=== PATIENT | female | born 1960 | race Caucasian/White ===

== ENCOUNTER 2016-08-19 01:14 | Emergency (ER) | payer SELFPAY ==
[~2016-08-19 01:14] MED LIST: BUPR300T PO; LEXA20TA PO; LIPI40TA PO; LOSA100T3 PO; MELO-1 PO; METO100T PO; NAPR500T PO; TEMA30CA PO
[2016-08-19 01:17] VITALS: BP 163/94; PULSE 98; RESP 16; TEMP 97.5; O2SAT 97
== END 2016-08-19 02:30 | disposition left against medical advice (07) ==
LOC: NED 01:14
DX: F32.9 Major depressive disorder, single episode, unspecified (principal); Z53.21 Procedure and treatment not carried out due to patient leaving prior to being seen by health care provider
CPT/HCPCS: 99281

== ENCOUNTER 2016-12-25 15:56 | Emergency (ER) | payer SELFPAY ==
[~2016-12-25] VITALS: Ht 170.2 cm; Wt 62.0 kg
[~2016-12-25 15:56] MED LIST changes: -MELO-1 PO; +MELO15TA20 PO; -NAPR500T PO; +NAPR500T2 PO
[2016-12-25 16:07] VITALS: BP 169/83; PULSE 91; RESP 16; TEMP 97.9; O2SAT 98
--- NOTE | 2016-12-25 17:01 | PD ---
HPI Chief Complaint: Injury Time Seen by Provider: 16:32 Travel History International Travel<30 days: No Contact w/Intl Traveler<30days: No Traveled to known affect area: No History of Present Illness HPI 56 old female with right rib and back pain after falling off work and equipment and landing onto a treadmill. She denies head injury or loss of consciousness. She denies headache, neck pain, chest pain, shortness of breath, abdominal pain or paresthesia or weakness in extremities. Symptom severity is moderate. She reports the pain is worse with movement and relieved with rest. PFSH Past Medical History Depression: Yes Cardiovascular Problems: Yes (htn on meds) Hypertension: Yes Triglycerides - High: Yes Past Surgical History Abdominal Surgery: Yes (EXPLORATORY SURGERY) Gynecologic Surgery: Yes (HYSTERECTOMY) Hysterectomy: Yes Other Surgery: Yes Social History Alcohol Use: Yes (occ) Tobacco Use: Yes (02/09 PPD) Substance Use: No Allergies-Medications (Allergen,Severity, Reaction): Coded Allergies: morphine (Unverified Allergy, Mild, headache, 12/25/16) Reported Meds & Prescriptions Reported Meds & Active Scripts Active Robaxin (Methocarbamol) 500 Mg Tab 500 Mg PO TID Reported Lipitor (Atorvastatin Calcium) 40 Mg Tab 40 Mg PO HS Naproxen 500 Mg Tab 500 Mg PO BID Metoprolol Tartrate 100 Mg Tab 100 Mg PO HS Meloxicam 15 Mg Tab 15 Mg PO DAILY Losartan-Hydrochlorothiazide 100-12.5 Mg Tab 1 Tab PO DAILY Lexapro (Escitalopram Oxalate) 20 Mg Tab 20 Mg PO DAILY Bupropion HCl ER 24 HR (Bupropion HCl) 300 Mg Tab 300 Mg PO DAILY Temazepam 30 Mg Cap 30 Mg PO HS PRN Review of Systems Except as stated in HPI: all other systems reviewed are Neg General / Constitutional: No: Fever Eyes: No: Visual changes HENT: No: Headaches Cardiovascular: No: Chest Pain or Discomfort Respiratory: No: Shortness of Breath Physical Exam Narrative GENERAL: Well-nourished, well-developed patient. SKIN: Focused skin assessment warm/dry. HEAD: Normocephalic. Atraumatic EYES: No scleral icterus. No injection or drainage. EOMs intact NECK: Supple, trachea midline. No JVD or lymphadenopathy. Cervical midline tenderness CARDIOVASCULAR: Regular rate and rhythm without murmurs, gallops, or rubs. RESPIRATORY: Breath sounds equal bilaterally. No accessory muscle use. GASTROINTESTINAL: Abdomen soft, non-tender, nondistended. MUSCULOSKELETAL: No cyanosis, or edema. Pelvis is stable. BACK: Tenderness of the thoracic and lumbar spine. Ecchymosis noted to the right posterior back at the location of rib number 12. No crepitus. Without obvious deformity. No CVA tenderness. Data Data Last Documented VS Vital Signs Date Time Temp Pulse Resp B/P (MAP) Pulse Ox O2 Delivery O2 Flow Rate FiO2 12/25/16 16:07 97.9 91 16 169/83 (111) 98 Orders Orders Spine, Thoracic-Ap/Lat/Sw(3vw) (12/25/16 ) Spine, Lumbar Comp W/Obliq (12/25/16 ) Chest, Single Ap (12/25/16 ) Ketorolac Inj (Toradol Inj) (12/25/16 18:00) Ed Discharge Order (12/25/16 17:52) MDM Medical Decision Making Medical Screen Exam Complete: Yes Emergency Medical Condition: Yes Differential Diagnosis Rib fracture, contusion, spine fracture, back strain Narrative Course 56-year-old female here for rib and back pain after falling off work and equipment last night. There was no loss of consciousness. She is a normal neurologic exam. CVA tenderness. She denies hematuria. She does have ecchymosis along the border of the right lower rib cage/lumbar region. Thoracic spine x-ray: Negative for fracture Lumbar spine x-ray: Negative for fracture Chest x-ray: Normal chest Diagnosis Primary Impression: Contusion Qualified Codes: S30.0XXA - Contusion of lower back and pelvis, initial encounter Referrals: [facility] Departure Forms: Tests/Procedures, Work Release Special Instructions: No heavy lifting, itching, pulling for one week. Additional Instructions: Take [id number] Motrin 6 800 mg every 6-8 hours as needed for pain. Take the muscle relaxer as needed for muscle stiffness and spasm. Avoid heavy lifting or strenuous activity. Return to emergency department if he developed new or worsening symptoms. Scripts Methocarbamol (Robaxin) 500 Mg Tab 500 MG PO TID for Muscle Spasm, #15 TAB 0 Refills Prov: Pat Haynes 12/25/16 Disposition: 01 DISCHARGE HOME Condition: Stable Pat Haynes Dec 25, 2016 17:00
--- NOTE | 2016-12-25 17:41 | RADRPT ---
EXAM DATE/TIME: 12/25/2016 17:08 [facility] COMPARISON: No previous studies available for comparison. INDICATIONS : Using exercise bike when it broke, fell from bike, has pain low back MEDICAL HISTORY : None. SURGICAL HISTORY : Hysterectomy. ENCOUNTER: Initial ACUITY: 2 days PAIN SCORE: 9/10 LOCATION: Right Right side low back FINDINGS: There is no evidence for compression deformity. Moderate multilevel disc space narrowing and osteophy tosis. There is grade 1 retrolisthesis of L2 on L3. No facet hypertrophic changes. CONCLUSION: No acute fracture seen. William Govea MD on December 25, 2016 at 17:38 Board Certified Radiologist. This report was verified electronically.
--- NOTE | 2016-12-25 17:46 | RADRPT ---
EXAM DATE/TIME: 12/25/2016 17:15 [facility] COMPARISON: SPINE LUMBAR COMPLETE W/OBLIQ, December 25, 2016, 17:08. INDICATIONS : States fell when exercise bike broke, has upper back pain MEDICAL HISTORY : None. SURGICAL HISTORY : Hysterectomy. ENCOUNTER: Initial ACUITY: 2 days PAIN SCORE: 9/10 LOCATION: Right upper back FINDINGS: Mild disc space narrowing at minimal anterior osteophyte formation. No compression deformities. Sligh t convex to the right curvature of thoracic spine. CONCLUSION: Of degenerative changes. William Govea MD on December 25, 2016 at 17:44 Board Certified Radiologist. This report was verified electronically.
--- NOTE | 2016-12-25 17:46 | RADRPT ---
EXAM DATE/TIME: 12/25/2016 17:04 [facility] COMPARISON: No previous studies available for comparison. INDICATIONS : States fall when exercise bike broke, has pain all over right side chest MEDICAL HISTORY : None. SURGICAL HISTORY : Hysterectomy. ENCOUNTER: Initial ACUITY: 2 days PAIN SCORE: 9/10 LOCATION: Right chest FINDINGS: A single view of the chest demonstrates the lungs to be symmetrically aerated without evidence of mas s, infiltrate or effusion. The cardiomediastinal contours are unremarkable. Osseous structures are intact. CONCLUSION: Normal examination. William Govea MD on December 25, 2016 at 17:44 Board Certified Radiologist. This report was verified electronically.
[2016-12-25] MEDS ORDERED: ROBA500T PO (17:55)
[2016-12-25] MEDS ORDERED: KETOROLAC TROMETHAMINE 60 MG/2 ML (IM) VIAL IM ONE (18:00)
== END 2016-12-25 18:20 | disposition home or self-care (01) ==
LOC: PHEFT 15:56
DX: S30.0XXA Contusion of lower back and pelvis, initial encounter (principal); I10 Essential (primary) hypertension; F17.200 Nicotine dependence, unspecified, uncomplicated; W17.89XA Other fall from one level to another, initial encounter; Y93.A1 Activity, exercise machines primarily for cardiorespiratory conditioning
CPT/HCPCS: 71010; 72072; 72110; 96372; 99284; J1885